=== PATIENT | female | born 2000 | race Caucasian/White ===

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

== ENCOUNTER 2019-01-08 10:45 | Emergency (ER) | payer OTHER ==
[2019-01-08 10:54] VITALS: TEMP 98.4
[2019-01-08] MEDS ORDERED: IPRATROPIUM-ALBUTEROL 3 ML NEB INHALATION STA (11:14)
--- NOTE | 2019-01-08 11:22 | ED ---
URI HPI - General Chief Complaint: Upper Respiratory Infection Stated Complaint: Cough, Fever Time Seen by Provider: 01/08/19 11:10 Source: patient, RN notes reviewed Mode of arrival: ambulatory Limitations: no limitations - History of Present Illness Initial Comments: 18-year-old female presents emergency department for cough congestion over the last 1 week. Patient states progressively getting worse. Patient states her is apologetic here. Patient states that she's had a large amount of sinus drainage. Patient's tried no [id number] cough and cold medications. Patient is a daily smoker. Patient states that she's has no shortness of breath she did have 1 episode of vomiting which is posttussive. Denies any chance she has no significant past medical history and NO KNOWN DRUG ALLERGIES. - Related Data Previous Rx's Medication Instructions Recorded Amoxicillin/Potassium Clav 1 tab PO Q12HR #20 tab 01/08/19 [Augmentin 875-125 Tablet] predniSONE 50 mg PO DAILY #5 tab 01/08/19 Allergies Allergy/AdvReac Type Severity Reaction Status Date / Time No Known Allergies Allergy Verified 01/08/19 11:10 Review of Systems ROS Statement: Those systems with pertinent positive or pertinent negative responses have been documented in the HPI. ROS Other: All systems not noted in ROS Statement are negative. Past Medical History Past Medical History: No Reported History History of Any Multi-Drug Resistant Organisms: None Reported Past Surgical History: No Surgical Hx Reported Past Psychological History: Depression Smoking Status: Current every day smoker Past Alcohol Use History: None Reported Past Drug Use History: None Reported General Exam Limitations: no limitations General appearance: alert, in no apparent distress Head exam: Present: atraumatic, normocephalic, normal inspection Eye exam: Present: normal appearance, PERRL, EOMI. Absent: scleral icterus, co njunctival injection, periorbital swelling ENT exam: Present: mucous membranes moist, normal external ear exam. Absent: normal oropharynx (Postnasal drainage), TM's normal bilaterally (Mild fluid noted) Neck exam: Present: normal inspection, full ROM. Absent: tenderness, meningismus, lymphadenopathy Respiratory exam: Present: wheezes, decreased breath sounds. Absent: normal lung sounds bilaterally, respiratory distress, rales, rhonchi, stridor Cardiovascular Exam: Present: regular rate, normal rhythm, normal heart sounds. Absent: systolic murmur, diastolic murmur, rubs, gallop, clicks GI/Abdominal exam: Present: soft, normal bowel sounds. Absent: distended, tend erness, guarding, rebound, rigid Course Vital Signs 01/08/19 01/08/19 10:52 11:37 Temperature 98.4 F Pulse Rate 91 90 Respiratory 20 Rate Blood Pressure 127/84 O2 Sat by Pulse 96 Oximetry - Reevaluation(s) Reevaluation #1: 01/08/19 11:21 I counseled the patient for smoking cessation for greater than 3 minutes Medical Decision Making - Medical Decision Making 18-year-old female presented for cough congestion shortness breath. Patient chest x-rays unremarkable she does feel improved after DuoNeb treatment. Patient be treated for acute sinusitis, acute bronchitis. Return parameters were discussed. Disposition Clinical Impression: Bronchitis, Sinusitis Disposition: HOME SELF-CARE Condition: Stable Instructions (If sedation given, give patient instructions): Upper Respiratory Infection (ED) Additional Instructions: Please return to the Emergency Department if symptoms worsen or any other concerns. Prescriptions: Amoxicillin/Potassium Clav [Augmentin 875-125 Tablet] 1 tab PO Q12HR #20 tab predniSONE 50 mg PO DAILY #5 tab Is patient prescribed a controlled substance at d/c from ED?: No Referrals: Amanda Marquez MD [Primary Care Provider] - 1-2 days Time of Disposition: 11:46
--- NOTE | 2019-01-08 11:29 | XR ---
EXAMINATION TYPE: XR chest 2V DATE OF EXAM: 01/08/2019 COMPARISON: 12/12/2017 HISTORY: Chest pain TECHNIQUE: Frontal and lateral views of the chest are obtained. FINDINGS: There is no focal air space opacity. No evidence for pneumothorax. No pleural effusion. The cardiac silhouette size is within normal limits. The osseous structures are grossly intact. IMPRESSION: 1. No acute cardiopulmonary process.
[2019-01-08 11:58] VITALS: BP 124/74; PULSE 77; RESP 18
== END 2019-01-08 11:58 | disposition home or self-care (01) ==
LOC: EC 10:45
DX: J40 Bronchitis, not specified as acute or chronic (principal); J32.9 Chronic sinusitis, unspecified; F17.200 Nicotine dependence, unspecified, uncomplicated; Z88.0 Allergy status to penicillin; Z88.8 Allergy status to other drugs, medicaments and biological substances
CPT/HCPCS: 71046; 94640; 99283

== ENCOUNTER 2019-01-30 20:46 | Emergency (ER) | payer OTHER ==
[2019-01-30 21:07] LABS: Glucose,Whole Blood 112 mg/dL (75-99)
--- NOTE | 2019-01-30 21:22 | ED ---
General Adult HPI - General Chief complaint: Neuro Symptoms/Deficit Stated complaint: Facial Drooping Time Seen by Provider: 01/30/19 21:02 Source: patient Mode of arrival: ambulatory Limitations: no limitations - History of Present Illness Initial comments: Dictation was produced using [employer] dictation software. please excuse any gram matical, word or spelling errors. Chief Complaint: 18-year-old female presents with right facial weakness. History of Present Illness: Patient is a 18-year-old female she reports that sin ce waking up this morning at 9 AM she noticed that she had right facial weakness. She noted that in the mirror she saw that her right face was droopy. Patient also points of some weakness to closing the right eye. Patient denies any history of comorbid conditions. She does not take any medications on a regular basis. Patient denies any extremity issues. No other complaints at this time. No vision loss. No pain complaints. The ROS documented in this emergency department record has been reviewed and confirmed by me. Those systems with pertinent positive or negative responses have been documented in the HPI. All other systems are other negative and/or noncontributory. PHYSICAL EXAM: General Impression: Alert and oriented x3, not in acute distress HEENT: Normocephalic atraumatic, extra-ocular movements intact, pupils equal and reactive to light bilaterally, mucous membranes moist. Cardiovascular: Heart regular rate and rhythm, S1&S2 audible, no murmurs, rubs or gallops Chest: Lungs clear to auscultation bilaterally, no rhonchi, no wheeze, no rales Abdomen: Bowel sounds present, abdomen soft, non-tender, non-distended, no organomegaly Musculoskeletal: Pulses present and equal in all extremities, no peripheral edema Motor: no focal deficits noted Neurological: Right upper and lower facial weakness. She has difficulty with closing the right eyelid. Right facial droop. 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 Vital signs upon her shows heart rate of 143, rest of vital signs within acceptable limits. Patient has no risk factors for stroke. Laboratory evaluation obtained. CBC, metabolic panel and urine test is negative. Patient clinical presentation consistent with Hewitt palsy. She is given prescription for antivirals, steroids. She is counseled on appropriate eye care. She is given eyedrops and eye ointment to be used at night. She is told to keep the eye shut and appendectomy. Patient was given an eye patch told to keep it on the eye to protect the cornea. Patient understandable agreeable t o plan. Patient clear for discharge. EKG interpretation: Ventricular rate 121, sinus tachycardia, MI interval 144, QS 92, QTC 414. No MI prolongation, no QTC prolongation, no ST or T-wave changes no huong. Overall, this EKG is unremarkable - Related Data Previous Rx's Medication Instructions Recorded Artificial Tears-Hypromellose 1 drops RIGHT EYE TID #1 bottle 01/30/19 [Artificial Tear Drops] Erythromycin Ophth Oint (1 gm) 1 applic RIGHT EYE DAILY #1 tube 01/30/19 [Ilotycin Ophth Oint (1 gm)] predniSONE 60 mg PO DAILY #21 tab 01/30/19 valACYclovir HCL [Valacyclovir] 1,000 mg PO Q8HR #21 tab 01/30/19 Allergies Allergy/AdvReac Type Severity Reaction Status Date / Time No Known Allergies Allergy Verified 01/30/19 21:23 Review of Systems ROS Statement: Those systems with pertinent positive or pertinent negative responses have been documented in the HPI. ROS Other: All systems not noted in ROS Statement are negative. Past Medical History Past Medical History: No Reported History History of Any Multi-Drug Resistant Organisms: None Reported Past Surgical History: No Surgical Hx Reported Past Psychological History: Depression Smoking Status: Current every day smoker Past Alcohol Use History: None Reported Past Drug Use History: None Reported General Exam Limitations: no limitations Course Vital Signs 01/30/19 01/30/19 20:48 21:56 Temperature 98.7 F Pulse Rate 143 H 100 Respiratory 16 20 Rate Blood Pressure 116/69 112/78 O2 Sat by Pulse 96 97 Oximetry Medical Decision Making - Lab Data Result diagrams: 01/30/19 21:20 01/30/19 21:20 Lab Results 01/30/19 01/30/19 01/30/19 Range/Units 21:04 21:20 21:20 WBC 10.1 (4.0-11.0) k/uL RBC 4.51 (3.80-5.40) m/uL Hgb 14.2 (11.4-16.0) gm/dL Hct 42.5 (34.0-46.0) % MCV 94.4 (80.0-100.0) fL MCH 31.4 (25.0-35.0) pg MCHC 33.3 (31.0-37.0) g/dL RDW 12.6 (11.5-15.5) % Plt Count 293 (150-450) k/uL Neutrophils % 58 % Lymphocytes % 29 % Monocytes % 4 % Eosinophils % 7 % Basophils % 1 % Neutrophils # 5.8 (1.3-7.7) k/uL Lymphocytes # 2.9 (1.0-4.8) k/uL Monocytes # 0.4 (0-1.0) k/uL Eosinophils # 0.7 (0-0.7) k/uL Basophils # 0.1 (0-0.2) k/uL Sodium 141 (137-145) mmol/L Potassium 4.2 (3.5-5.1) mmol/L Chloride 111 H (98-107) mmol/L Carbon Dioxide 25 (22-30) mmol/L Anion Gap 5 mmol/L BUN 21 H (7-17) mg/dL Creatinine 0.89 (0.52-1.04) mg/dL Est GFR (CKD-EPI)AfAm >90 (>60 ml/min/1.73 sqM) Est GFR (CKD-EPI)NonAf >90 (>60 ml/min/1.73 sqM) Glucose 112 H (74-99) mg/dL POC Glucose (mg/dL) 112 H (75-99) mg/dL POC Glu Drafter Seismograph ID Malinda Bolanos Calcium 8.6 (8.4-10.2) mg/dL Magnesium 1.7 (1.6-2.3) mg/dL Urine HCG, Qual (Not Detectd) 01/30/19 Range/Units 21:40 WBC (4.0-11.0) k/uL RBC (3.80-5.40) m/uL Hgb (11.4-16.0) gm/dL Hct (34.0-46.0) % MCV (80.0-100.0) fL MCH (25.0-35.0) pg MCHC (31.0-37.0) g/dL RDW (11.5-15.5) % Plt Count (150-450) k/uL Neutrophils % % Lymphocytes % % Monocytes % % Eosinophils % % Basophils % % Neutrophils # (1.3-7.7) k/uL Lymphocytes # (1.0-4.8) k/uL Monocytes # (0-1.0) k/uL Eosinophils # (0-0.7) k/uL Basophils # (0-0.2) k/uL Sodium (137-145) mmol/L Potassium (3.5-5.1) mmol/L Chloride (98-107) mmol/L Carbon Dioxide (22-30) mmol/L Anion Gap mmol/L BUN (7-17) mg/dL Creatinine (0.52-1.04) mg/dL Est GFR (CKD-EPI)AfAm (>60 ml/min/1.73 sqM) Est GFR (CKD-EPI)NonAf (>60 ml/min/1.73 sqM) Glucose (74-99) mg/dL POC Glucose (mg/dL) (75-99) mg/dL POC Glu Drafter Seismograph ID Calcium (8.4-10.2) mg/dL Magnesium (1.6-2.3) mg/dL Urine HCG, Qual Not Detected (Not Detectd) Disposition Clinical Impression: Hewitt palsy Disposition: HOME SELF-CARE Instructions (If sedation given, give patient instructions): Hewitt Palsy (ED) Prescriptions: Artificial Tears-Hypromellose [Artificial Tear Drops] 1 drops RIGHT EYE TID #1 bottle Erythromycin Ophth Oint (1 gm) [Ilotycin Ophth Oint (1 gm)] 1 applic RIGHT EYE DAILY #1 tube predniSONE 60 mg PO DAILY #21 tab valACYclovir HCL [Valacyclovir] 1,000 mg PO Q8HR #21 tab Is patient prescribed a controlled substance at d/c from ED?: No Referrals: Amanda Marquez MD [Primary Care Provider] - 1-2 days Garland Huang MD [STAFF PHYSICIAN] - 1-2 days Time of Disposition: 22:21
[2019-01-30 21:29] LABS: Basophils # (A) 0.1 k/uL (0-0.2); Basophils % (A) 1 %; Eosinophils # (A) 0.7 k/uL (0-0.7); Eosinophils % (A) 7 %; HCT 42.5 % (34.0-46.0); HGB 14.2 gm/dL (11.4-16.0); Lymphocytes # (A) 2.9 k/uL (1.0-4.8); Lymphocytes % (A) 29 %; MCH 31.4 pg (25.0-35.0); MCHC 33.3 g/dL (31.0-37.0); MCV 94.4 fL (80.0-100.0); Mean Platelet Volume 6.8; Monocytes # (A) 0.4 k/uL (0-1.0); Monocytes % (A) 4 %; Neutrophils # (A) 5.8 k/uL (1.3-7.7); Neutrophils % (A) 58 %; Platelet Count 293 k/uL (150-450); RBC 4.51 m/uL (3.80-5.40); RDW 12.6 % (11.5-15.5); WBC 10.1 k/uL (4.0-11.0)
[2019-01-30 21:38] LABS: African American GFR (CKD) >90 (>60 ml/min/1.73 sqM); Anion Gap 5 mmol/L; Blood Urea Nitrogen 21 mg/dL (7-17); Calcium 8.6 mg/dL (8.4-10.2); Carbon Dioxide 25 mmol/L (22-30); Chloride 111 mmol/L (98-107); Glucose 112 mg/dL (74-99); Magnesium 1.7 mg/dL (1.6-2.3); Potassium 4.2 mmol/L (3.5-5.1); Sodium 141 mmol/L (137-145)
[2019-01-30 21:56] VITALS: RESP 20
[2019-01-30 22:57] VITALS: BP 112/68; PULSE 97; TEMP 98.1
== END 2019-01-30 22:57 | disposition home or self-care (01) ==
LOC: EC 20:46
DX: G51.0 Bell's palsy (principal); F17.200 Nicotine dependence, unspecified, uncomplicated
CPT/HCPCS: 36415; 80048; 81025; 83735; 85025; 99284